=== PATIENT | male | born 1970 | race Caucasian/White ===

== ENCOUNTER → 2018-07-23 | Outpatient (CLI) | payer OTHER ==
[~2018-07-23] MED LIST: AMLO5 PO; CARB50 PO; CLON.5 PO; CYCL10 PO; HYDACE5 PO; LISI10 PO; LISI20 PO; LISI5 PO; METO50 PO; METO50ER PO; Mobic7.5 MG PO; PRED10 PO; Percocet 5-3251 EACH PO; RXCYCL10 PO; WARF2.5 PO
[2018-07-23 09:59] LABS: BASOPHILS ABSOLUTE AUTO 0.08 K/mm3 (0.00-0.23); BASOPHILS PERCENT AUTO 1 % (0-2); EOSINOPHILS ABSOLUTE AUTO 0.31 K/mm3 (0.00-0.68); EOSINOPHILS PERCENT AUTO 3 % (0-6); Hematocrit 39.4 % (37.0-53.0); Hemoglobin 13.4 g/dL (13.5-17.5); IMMATURE GRAN ABSOLUTE AUTO 0.08 K/mm3 (0.00-0.10); IMMATURE GRAN PERCENT AUTO 1 % (0-1); LYMPHOCYTES ABSOLUTE AUTO 1.95 K/mm3 (0.84-5.20); LYMPHOCYTES PERCENT AUTO 21 % (21-46); MONOCYTES ABSOLUTE AUTO 1.09 K/mm3 (0.16-1.47); MONOCYTES PERCENT AUTO 12 % (4-13); Mean Corpuscular HGB 35.7 pg (26.0-34.0); Mean Corpuscular Volume 105 fL (80-100); NEUTROPHILS ABSOLUTE AUTO 5.94 K/mm3 (1.96-9.15); NEUTROPHILS PERCENT AUTO 63 % (41-73); Platelet Count 633 K/mm3 (150-400); RDW Coefficient Variation 13.6 % (11.7-14.2); RDW Standard Deviation 52.3 fL (35.1-46.3); Red Blood Cell Count 3.75 M/mm3 (4.30-5.90); White Blood Cell Count 9.45 K/mm3 (4.00-11.30)
[2018-07-23 10:31] LABS: Alanine Aminotransfer (ALT/SGP 44 U/L (12-78); Albumin, Blood 2.7 g/dL (3.4-5.0); Albumin/Globulin Ratio 0.5 (0.8-1.8); Alk Phos 99 U/L (50-136); Anion Gap 6 mmol/L (6-16); Aspartate Aminotrans (AST/SGOT 36 U/L (12-37); Bilirubin, Total 0.4 mg/dL (0.1-1.0); Blood Urea Nitrogen 10 mg/dL (8-24); Bun/Creatinine Ratio 10.9 (12.0-20.0); CO2, Blood 28 mmol/L (21-32); Chloride, Blood 104 mmol/L (98-108); Creatinine, Blood 0.92 mg/dL (0.60-1.20); Globulin, Blood 5.1 g/dL (2.2-4.0); Glomerular Filtration Rate >60 (60-); Glucose, Blood 101 mg/dL (70-99); Potassium, Blood 4.2 mmol/L (3.5-5.5); Sodium, Blood 138 mmol/L (136-145); Total Protein, Blood 7.8 g/dL (6.4-8.2)
== END | disposition home or self-care (01) ==
LOC: LAB SHORT 09:52 → LAB EV 09:52
PROVIDERS: General Practice
DX: J18.9 Pneumonia, unspecified organism (principal)
CPT/HCPCS: 80053; 85025

== ENCOUNTER 2020-02-24 13:32 | Inpatient (IN) | payer OTHER ==
[~2020-02-24] VITALS: Ht 175.3 cm; Wt 72.7 kg
[2020-02-24 14:13] LABS: BASOPHILS ABSOLUTE AUTO 0.06 K/mm3 (0.00-0.23); BASOPHILS PERCENT AUTO 1 % (0-2); EOSINOPHILS ABSOLUTE AUTO 0.03 K/mm3 (0.00-0.68); EOSINOPHILS PERCENT AUTO 0 % (0-6); Hematocrit 49.8 % (37.0-53.0); Hemoglobin 17.9 g/dL (13.5-17.5); IMMATURE GRAN ABSOLUTE AUTO 0.03 K/mm3 (0.00-0.10); IMMATURE GRAN PERCENT AUTO 0 % (0-1); LYMPHOCYTES ABSOLUTE AUTO 1.26 K/mm3 (0.84-5.20); LYMPHOCYTES PERCENT AUTO 13 % (21-46); MONOCYTES ABSOLUTE AUTO 0.86 K/mm3 (0.16-1.47); MONOCYTES PERCENT AUTO 9 % (4-13); Mean Corpuscular HGB 36.3 pg (26.0-34.0); Mean Corpuscular HGB Conc 35.9 g/dL (31.5-36.5); Mean Corpuscular Volume 101 fL (80-100); NEUTROPHILS ABSOLUTE AUTO 7.19 K/mm3 (1.96-9.15); NEUTROPHILS PERCENT AUTO 76 % (41-73); Platelet Count 256 K/mm3 (150-400); RDW Coefficient Variation 11.4 % (11.7-14.2); Red Blood Cell Count 4.93 M/mm3 (4.30-5.90); White Blood Cell Count 9.43 K/mm3 (4.00-11.30)
[2020-02-24 14:35] LABS: Alanine Aminotransfer (ALT/SGP 135 U/L (12-78); Albumin, Blood 4.1 g/dL (3.4-5.0); Albumin/Globulin Ratio 1.1 (0.8-1.8); Alk Phos 109 U/L (50-136); Anion Gap 14 mmol/L (6-16); Aspartate Aminotrans (AST/SGOT 159 U/L (12-37); Bilirubin, Total 0.8 mg/dL (0.1-1.0); Blood Urea Nitrogen 6 mg/dL (8-24); Bun/Creatinine Ratio 9.7 (12.0-20.0); CO2, Blood 24 mmol/L (21-32); Calcium, Blood 8.5 mg/dL (8.5-10.1); Chloride, Blood 90 mmol/L (98-108); Creatinine, Blood 0.62 mg/dL (0.60-1.20); Globulin, Blood 3.7 g/dL (2.2-4.0); Glomerular Filtration Rate >60 (60-); Glucose, Blood 107 mg/dL (70-99); Potassium, Blood 3.3 mmol/L (3.5-5.5); Sodium, Blood 128 mmol/L (136-145); Total Protein, Blood 7.8 g/dL (6.4-8.2); Troponin I <0.015 ng/mL (0.000-0.040)
[2020-02-24] MEDS ORDERED: LISI5 (15:16)
[2020-02-24 18:04] LABS: PCO2 Arterial 41.4 mmHg (35-45); PO2 Arterial 103 mmHg (80-100); pH Blood Arterial 7.46 (7.35-7.45)
--- NOTE | 2020-02-24 19:00 | NUR ---
ASSUMPTION OF CARE RECIEVED REPORT FROM VIKASH URBINA, ASSUMED CARE OF PATIENT. PATIENT INTUBATED AND SEDATED. ETT 7.0 26CM AT THE LIP. VENT SETTINGS AC 14, 450, PEEP 5, FIO2 35%. VITALS STABLE, PROPOFOL INFUSING AT 65MCG/KG/MIN. POTASSIUM INFUSING ORDERED. FUENTES PATENT AND DRAINING CLEAR, NAZARIO URINE. NO S/S OF DISTRESS. WILL REVIEW ORDERS AND TREAT PRESCRIBED.
--- NOTE | 2020-02-24 19:55 | NUR ---
ASSUMED CARE/SUMMARY PT ARRIVED TO ICU AT 1635 VIA STRETCHER, AND WHEN WE TRANSFERRED HIM HE BECAME VERY AGITATED/ANXIOUS, HAVING DIFFICULTY WITH THE 7.0 ETT, IT WAS DIFFICULT GETTING MUCH SECRETIONS SUCTIONED OUT. VITALS WERE NORMAL, SPO2 IN THE 90s, MAP > 65. VENT WAS SET AT AC 14/450/5/35%. PROPFOL WAS TURNED UP, AND PEAKED AT 65 MCG/KG/MIN. 100 MCG OF FENT AND 2 MG OF ATIVAN GIVEN AROUND 1700, DUE TO THE PT's HIGH AGITATION, PULLING ON RESTRAINTS, REACHING FOR TUBE, ETC... PT WOULD SHAKE HIS HEAD NO AND YES, MOSTLY APPROPRIATELY TO QUESTIONS, SQUEEZE AND LET GO OF FINGERS, BUT DID NOT COMPLETELY FOLLOW DIRECTIONS, KEPT FIGHTING AGAINST RESTRAINTS AND STAFF. PT WAS CALM/SEDATED AFTER MEDS, DR TALBOT UPDATED, AND PLACED MORE ORDERS. PT STABLE. SWELLING SIGNIFICANT ON FACE AND LIPS OF THE RIGHT SIDE, THE TONGUE IS MILDLY TO MODERATELY SWOLLEN WELL. DR. TALBOT WANTS THE PT BE COMFORTABLE, AND NOT GET A SEDATION VACATION/SBT UNTIL DR. MOSELEY EVALUATES PT IN THE MORNING AND WILL THEN DETERMINE THE NEXT COURSE OF ACTION. LR INFUSING AT 100 ML/HR. OG TUBE WAS CLAMPED, KCL WAS GIVEN PER TUBE. K+RIDER IV INFUSING PB WELL. BED LOW AND LOCKED. PT IN SWB RESTRAINTS, SECURED TO BED.
--- NOTE | 2020-02-25 | NUR ---
REASSESSMENT NO ACUTE CHANGES FROM PREVIOUS ASSESSMENT. VENT SETTINGS FIO2 DECREASED TO 30%. VITALS REMAIN STABLE. WILL CONTINUE TO MONITOR.
[2020-02-25 03:57] LABS: Hematocrit 47.5 % (37.0-53.0); Hemoglobin 16.3 g/dL (13.5-17.5); Mean Corpuscular HGB 35.1 pg (26.0-34.0); Mean Corpuscular HGB Conc 34.3 g/dL (31.5-36.5); Mean Corpuscular Volume 102 fL (80-100); Mean Platelet Volume 9.9 fL (9.1-12.4); Platelet Count 156 K/mm3 (150-400); RDW Coefficient Variation 11.6 % (11.7-14.2); RDW Standard Deviation 44.3 fL (35.1-46.3); Red Blood Cell Count 4.65 M/mm3 (4.30-5.90); White Blood Cell Count 7.83 K/mm3 (4.00-11.30)
--- NOTE | 2020-02-25 04:00 | NUR ---
REASSESSMENT NO ACUTE CHANGES FROM PREVIOUS ASSESSMENT. FIO2 DECREASED TO 25% WITH SATS ABOVE 95%. FACIAL SWELLING STILL PRESENT BUT IMPROVING. PROPOFOL AT 65MCG/KG/MIN, LR AT 100ML/HR. OG TO LIS, AND FUENTES PATENT AND DRAINING CLEAR, YELLOW URINE.
[2020-02-25 04:13] LABS: Anion Gap 9 mmol/L (6-16); Blood Urea Nitrogen 13 mg/dL (8-24); Bun/Creatinine Ratio 17.1 (12.0-20.0); CO2, Blood 26 mmol/L (21-32); Calcium, Blood 7.4 mg/dL (8.5-10.1); Chloride, Blood 94 mmol/L (98-108); Creatinine, Blood 0.76 mg/dL (0.60-1.20); Glomerular Filtration Rate >60 (60-); Glucose, Blood 184 mg/dL (70-99); Magnesium, Blood 1.4 mg/dL (1.6-2.4); Phosphorus, Blood 3.6 mg/dL (2.5-4.9); Potassium, Blood 4.2 mmol/L (3.5-5.5); Sodium, Blood 129 mmol/L (136-145)
--- NOTE | 2020-02-25 05:43 | NUR ---
SHIFT SUMMARY PATIENT REMAINS INTUBATED AND SEDATED. VENT SETTINGS UNCHANGED, FIO2 UP TO 30%. SUCTIONING THICK, CLEAR DRAINAGE FROM NOSTRILS. THIN, WHITE SECRETIONS ARE SUCTIONED FREQUENTLY ORALLY. PROPOFOL CONTINUES AT 65MCG/KG/MIN AND LR AT 100CC/HR. OG REMAINS TO LIS, FUENTES IS PATENT AND DRAINING CLEAR, YELLOW URINE. VITALS ARE STABLE CHARTED. LABS REVIEWED, WILL CONTINUE TO MONITOR AND REPORT OFF TO ONCOMING RN.
--- NOTE | 2020-02-25 06:35 | NUR ---
PATIENT SPONTANEOUSLY AWOKE ON 65MCG/KG/MIN OF PROPOFOL. WIDE AWAKE, ATTEMPTING TO SIT UP AND CHEW ON TUBE. REDIRECTED AND ORIENTED PATIENT TO SITUATION. PATIENT FOLLOWS COMMANDS BUT BECAME MIDLY ANXIOUS, GAGGING ON TUBE AND CONTINUE TO LIFT HEAD OFF BED AND LOOK AROUND. ATIVAN GIVEN CHARTED AND PROPOFOL INCREASED FOR PATIENT'S COMFORT.
--- NOTE | 2020-02-25 09:34 | NUR ---
CARE ASSUMED CARE AND REPORT ASSUMED FROM ELIZABETH URBINA. PT INTUBATED AND SEDATED. VENT AC 14, TV 450, PEEP 5, FIO2 30%. PROPOFOL GTT INFUSING AT 70 MCG AT START OF SHIFT, NOW INFUSING AT 50 MCG. SEDATION VACATION COMPLETED; MD MOSELEY AT BEDSIDE; PT WAS CALM AND ABLE TO FOLLOW COMMANDS APPROPRIATELY. DENIED PAIN WHEN ASKED. CURRENTLY NSR, HR 90S AND BP WNL. LUNG SOUNDS COARSE THROUGHOUT, BUT DID CLEAR FOLLOWING ETT SUCTIONING. OGT SECURED TO LIWS; CLAMPED WHEN ADMINISTERING MEDICATIONS. FUENTES CATH SECURED AND PATENT. BUE RESTRAINED TO PROTECT ETT AND LINES. LIPS SWOLLEN WITH BOTTOM LIP LARGER THAN TOP LIP. RT CURRENTLY ADVANCING ETT TO 26 AT TEETH; WILL OBTAIN XRAY FOLLOWING ADVANCEMENT.
--- NOTE | 2020-02-25 11:47 | NUR ---
REASSESSMENT PT REMAINS INTUBATED. PT WAS ABLE TO FOLLOW COMMANDS APPROPRIATELY DURING SEDATION VACATION. ETT ADVANCED BY RT AND PER MD REQUEST. SHORTLY AFTER, PT HAD SUDDEN ONSET OF DESATURATION, WITH SPO2 DOWN TO 87%. RT NOTIFIED AND FIO2 INCREASED TO 50%. MD AWARE AND REPEAT CXR OBTAINED. OGT ADVANCED APPROX 4 INCHES PER MD REQUEST. MAGNESIUM REPLACED. ETT SECURED AT 27 AT TEETH. DIETARY CONSULTED FOR TUBE FEEDS. PROPOFOL GTT INFUSING AT 60 MCG. BUE RESTRAINED. WILL CONTINUE TO MONITOR.
--- NOTE | 2020-02-25 18:37 | NUR ---
TRIP TO CT/ SHIFT SUMMARY 1720 - PT HAD SUDDEN ONSET OF DECREASE IN SPO2, LOWEST BEING 82%. PT WAS SUCTIONED ORALLY AND THROUGH ETT FEW TIMES WITH 100% O2. REMAINED LOW SPO2. FIO2 ON VENT TITRATED UPWARDS, FROM 50% TO 70%. SEDATION ON STANDBY, PT REMAINED WITH LOW SPO2. MD MOSELEY AWARE. VERBAL ORDER TO INCREASE PEEP TO 10 AND FIO2 NEEDED. PT TAKEN ON TRIP TO CT SCAN TO RULE OUT PE. PT WAS ALERT ON PROPOFOL 50 MCG AND PULLING AGAINST RESTRAINTS. LUNG SOUNDS REMAINED CLEAR AND EQUAL IN ALL LOBES DURING HYPOXIC EPSIODE. PT NOW BACK IN ROOM, REMAINS ON VENT AC 14, TV 450, PEEP 10, FIO2 85%. REMAINS IN BUE RESTRAINTS. PROPOFOL GTT INFSUING AT 60 MCG; INCREASED PT IS PULLING AGAINST RESTRAINTS. TOLERATING TF AT 25 ML/HR. BP WNL. AFEBRILE. LR MIV INFUSING AT 100 ML/HR PER ORDER. FRIEND GGAAN AND SISTERS LEWIS AND ARIS UPDATED ON TELEPHONE. WILL GIVE BEDSIDE, HANDOFF REPORT TO NOC RN.
--- NOTE | 2020-02-25 19:00 | NUR ---
ASSUMPTION OF CARE RECEIVED REPORT FROM YUDI URBINA. ASSUMED CARE OF PATIENT. PATIENT VENTILATED, WITH SETTINGS AC 14, 450, PEEP 10 FIO2 85%. PROPOFOL AT 60MCG/KG/MIN, LR AT 100ML/HR. RESTRAINTS IN PLACE TO BILAT WRISTS, FUENTES PATENT AND DRAINING CLEAR, YELLOW URINE. VITALS STABLE CHARTED. WILL REVIEW ORDERS AND TREAT PRESCRIBED.
--- NOTE | 2020-02-25 22:01 | NUR ---
TUBE FEEDS INCREASED TUBE FEED TO 35ML/HR FROM 25 ML/HR. WILL MONITER PATIENT'S TOLERANCE AND RESIDUALS.
--- NOTE | 2020-02-26 | NUR ---
REASSESSMENT NO ACUTE CHANGES FROM PREVIOUS ASSESSMENT. VENT SETTINGS REMAINS AC 14, 450, PEEP 10, FIO2 55% WITH SATS ABOVE 95%. PROPOFOL AT 65MCG/KG/MIN, TF AT GOAL RATE OF 35ML/HR WITH RESIDUALS OF 30ML REFED. PATIENT CONTINUES TO SPONTANEOUSLY AWAKE, BUT IS REASSURED EASILY. WILL CONTINUE TO MONITOR.
[2020-02-26 03:29] LABS: BASOPHILS ABSOLUTE AUTO 0.02 K/mm3 (0.00-0.23); BASOPHILS PERCENT AUTO 0 % (0-2); EOSINOPHILS ABSOLUTE AUTO 0.01 K/mm3 (0.00-0.68); EOSINOPHILS PERCENT AUTO 0 % (0-6); Hematocrit 41.6 % (37.0-53.0); Hemoglobin 14.1 g/dL (13.5-17.5); IMMATURE GRAN ABSOLUTE AUTO 0.11 K/mm3 (0.00-0.10); IMMATURE GRAN PERCENT AUTO 1 % (0-1); LYMPHOCYTES ABSOLUTE AUTO 0.47 K/mm3 (0.84-5.20); LYMPHOCYTES PERCENT AUTO 3 % (21-46); MONOCYTES ABSOLUTE AUTO 0.64 K/mm3 (0.16-1.47); MONOCYTES PERCENT AUTO 4 % (4-13); Mean Corpuscular HGB 35.4 pg (26.0-34.0); Mean Corpuscular HGB Conc 33.9 g/dL (31.5-36.5); Mean Corpuscular Volume 105 fL (80-100); Mean Platelet Volume 10.2 fL (9.1-12.4); NEUTROPHILS ABSOLUTE AUTO 13.44 K/mm3 (1.96-9.15); NEUTROPHILS PERCENT AUTO 92 % (41-73); Platelet Count 142 K/mm3 (150-400); RDW Coefficient Variation 11.9 % (11.7-14.2); RDW Standard Deviation 46.7 fL (35.1-46.3); Red Blood Cell Count 3.98 M/mm3 (4.30-5.90); White Blood Cell Count 14.69 K/mm3 (4.00-11.30)
[2020-02-26 03:45] LABS: Anion Gap 6 mmol/L (6-16); Blood Urea Nitrogen 16 mg/dL (8-24); Bun/Creatinine Ratio 23.2 (12.0-20.0); CO2, Blood 29 mmol/L (21-32); Calcium, Blood 8.2 mg/dL (8.5-10.1); Chloride, Blood 101 mmol/L (98-108); Creatinine, Blood 0.69 mg/dL (0.60-1.20); Glomerular Filtration Rate >60 (60-); Glucose, Blood 170 mg/dL (70-99); Magnesium, Blood 2.4 mg/dL (1.6-2.4); Phosphorus, Blood 3.2 mg/dL (2.5-4.9); Potassium, Blood 3.8 mmol/L (3.5-5.5); Sodium, Blood 136 mmol/L (136-145)
--- NOTE | 2020-02-26 04:00 | NUR ---
REASSESSMENT NO ACUTE CHANGES FROM PREVIOUS ASSESSMENT. NO VISIBLE FACIAL SWELLING NOTED. PATIENT COMFORTABLE, TOLERATING VENTILATOR. VENT SETTINGS AC 14, 450, FIO2 30%, PEEP 10. SATS ABOVE 95%. PROPOFOL AT 65MCG/KG/MIN, LR AT 100, TF AT GOAL RATE OF 35ML/HR WITH RESIDUALS OF 70ML REFED. FUENTES REMAINS PATENT AND DRAINING CLEAR, YELLOW URINE. LABS REVEIWED. VITALS STABLE CHARTED. WILL CONTINUE TO MONITOR.
--- NOTE | 2020-02-26 06:10 | NUR ---
SHIFT SUMMARY PATIENT REMAINS INTUBATED AND SEDATED. VENT SETTINGS AC 14, 450, PEEP 10, FIO2 25%. SATS ABOVE 95%. VITALS STABLE. TUBE FEED REMAINS AT GOAL OF 35ML/HR, FLUSH IS 30ML/4 HOURS. PROPOFOL AT 65MCG/KG/MIN WITH SAS OF 3, LR AT 100ML/HR. FUENTES IS PATENT AND DRAINING CLEAR, YELLOW URINE. NO ACUTE EVENTS THROUGH SHIFT. WILL CONTINUE TO MONITOR AND REPORT TO ONCOMING RN.
--- NOTE | 2020-02-26 07:11 | NUR ---
RESPIRATORY CHANGES PATIENT WITH RAPID DROP IN 02 SATS TO 82%, FIO2 INCREASED TO 100%. PATIENT OPENING EYES AND ATTEMPTING TO SIT UP. PATIENT WAS EASILY REASSURED AND CALMED QUICKLY. SUCTIONED THIN SECRETIONS ORALLY WITH NO CHANGES TO O2 SATURATIONS. PATIENT SLOW TO RECOVER SATS WITH 100% FIO2. RT TO ROOM, ASSESSED ETT PLACEMENT, LEAK, AND SUCTIONED ETT WITH THICKER, WHITE SECRETIONS NOTED. FIO2 WAS PLACED AT 50% WITH SATS BETWEEN 90-92%. BEDSIDE REPORT WAS GIVEN TO WILSON URBINA.
--- NOTE | 2020-02-26 08:05 | NUR ---
INITIAL ASSESSMENT PATIENT INTUBATED AND ON SEDATION. PATIENT RESPONDS TO VERBAL STIMULI. PATIENT ABLE TO FOLLOW SOME SIMPLE COMMANDS. PATIENT ANXIOUS AT TIMES UPON WAKENING. PATIENT WEAK BUT ABLE TO MOVE EXTREMITIES. PATIENT AFEBRILE. PATIENT SHAKES HEAD "NO" WHEN ASKED BY NURSE IF HE IS IN PAIN. PATIENT SATTING 90% AND GREATER ON AC 14, TV 450, PEEP 10, AND 50% FIO2. LUNGS CLEAR TO AUSCULTATION. MODERATE AMOUNT OF FROTHY, CLEAR SPUTUM SUCTIONED FROM ETT. POSITIVE CUFF LEAK NOTED BY RT THIS AM. PATIENT IN SR, HR 70S TO 80S. SBP 1-TEENS TO 120S. ABDOMEN MILDLY DISTENDED, SOFT, NORMOACTIVE BS NOTED. UMBILICAL HERNIA NOTED. OG IN PLACE. VHP TF INFUSING AT GOAL RATE OF 35 MLS/ HOUR WITH 30 ML WATER FLUSH Q4H. OG SLOW AND DIFFICULT TO OBTAIN RESIDUALS AND TO FLUSH. RESIDUAL OF ZERO THIS AM. TEMP PROBE FUENTES IN PLACE DRAINING DARK YELLOW COLORED URINE. PATIENT FLUSHED. VERY SMALL LACERATION NOTED AT R EYEBROW FROM REPORTED FALL AT HOME. R SIDE OF FACE AND LIPS SLIGHTLY SWOLLEN; REPORTED TO HAVE GREAT IMPROVEMENT FROM JUST YESTERDAY. PROPOFOL INFUSING AT 60 MCG/ KG/ MINUTE AND LR AT 100 MLS/ HOUR. BED LOW, CALL LIGHT IN REACH. WILL CONTINUE TO MONITOR PATIENT FREQUENTLY THROUGHOUT SHIFT.
--- NOTE | 2020-02-26 08:18 | NUR ---
Echocardiogram completed.
--- NOTE | 2020-02-26 10:30 | NUR ---
PATIENT EXTUBATED AT 0958. PATIENT SATTING 90% AND GREATER ON 4 TO 5 L NC AT THIS TIME. PATIENT ORIENTED TO SELF AND FOLLOWING COMMANDS. PATIENT APPEARS CONFUSED OTHERWISE. SPEECH VERY SLURRED AND DIFFICULT TO UNDERSTAND. BED ALARM ON.
--- NOTE | 2020-02-26 12:01 | NUR ---
PATIENT HAS BEEN VERY ANXIOUS, REMOVING SPO2 PROBE, TRYING TO DEGOWN, TRYING TO CRAWL OUT OF BED, HAVING HALLUCINATIONS THAT PEOPLE ARE IN HIS ROOM. CIWA SCORE OF 16. PATIENT HAS BEEN GIVEN 4 MG PRN IV ATIVAN. PATIENT UNABLE TO COMPLETE BEDSIDE SWALLOW EVAL AT THIS TIME HE IS NOT CURRENTLY FOLLOWING DIRECTION TO COUGH AND DEEP BREATH. PATIENT ORIENTED ONLY TO SELF AT THIS TIME. SPEECH SLURRED AND VERY DIFFICULT TO UNDERSTAND. PATIENT HAS TEMP OF 99.4 DEGREES FAHRENHEIT. PATIENT SATTING 90% AND GREATER ON 5 L NC. HR IN THE 90S. SBP 1-TEENS TO 140S. OG REMOVED WHEN PATIENT EXTUBATED. BED LOW, CALL LIGHT IN REACH, BED ALARM ON. WILL CONTINUE TO MONITOR PATIENT FREQUENTLY THROUGHOUT SHIFT.
--- NOTE | 2020-02-26 16:00 | NUR ---
CIWA SCORE OF 8. PATIENT SATTING 90% AND GREATER ON OXYMIZER AT 8 L. PATIENT IN SR TO ST, HR 90S TO LOW 100S. SBP 180S TO 190S. TEMP OF 99.2 DEGREES FAHRENHEIT. NO OTHER ACUTE CHANGES TO NOTE ON AT THIS TIME.
--- NOTE | 2020-02-26 19:00 | NUR ---
ASSUMED CARE ASSUMED CARE OF PATIENT. AWAKE. AGITATED AND RESTLESS. ORIENTED TO SELF ONLY AT THIS TIME. FOLLOWS SIMPLE COMMANDS/DIRECTIONS. MOVES ALL EXTREMITIES AND REPOSTIONS SELF IN BED. BILATERAL SOFT WRIST RESTRAINTS IN PLACE TO PROTECT TUBES/LINES- PT DOES PULL ON FUENTES CATHETER AND IVs. PRECEDEX INFUSING @ 0.7MCG/KG/HR. CIWA SCORE IS 14. DENIES C/O PAIN OR DISCOMFORT. NPO AT THIS TIME. FUENTES PATENT- DRAINING YELLOW URINE. LR INFUSING @ 100CC/HR PER ORDER. SEE SHIFT ASSESSMENT FOR FULL ASSESSMENT.
--- NOTE | 2020-02-26 19:03 | NUR ---
SHIFT SUMMARY PATIENT INTUBATED AND ON SEDATION AT BEGINNING OF SHIFT. PATIENT EXTUBATED THIS SHIFT. PATIENT HAS BEEN IN ALCOHOL WITHDRAWALS SINCE BEING EXTUBATED. PATIENT STARTED ON PRECEDEX, SCHEDULED IV ATIVAN AND PRN IV ATIVAN. PATIENT HAS BEEN HALLUCINATING AND BEEN VERY AGITATED OFF AND ON. PATIENT HAD TMAX OF 99.4 DEGREES FAHRENHEIT. PATIENT PLACED ON 4 L NC ONCE EXTUBATED BUT INCREASED TO 8 L OXYMIZER SHORT TIME AFTER. PATIENT REMAINED IN SR TO ST, HR 70S TO LOW 100S. SBP 1-TEENS TO 190S. PATIENT REMAINED NPO. NURSE DID TRY BEDSIDE SWALLOW EVAL WITH PATIENT BUT PATIENT FAILED. PATIENT HAD 1 MEDIUM, LIQUID, BROWN BM THIS SHIFT. TEMP PROBE FUENTES DRAINED 3 L OF URINE. NO CHANGE TO SKIN. LR REMAINS INFUSING AT 100 MLS/ HOUR. PRECEDEX INFUSING AT 0.7 MCG/ KG/ HOUR. SPUTUM CULTURE SENT TO LAB FOR INCREASING WBCS. LEVAQUIN STARTED. REPORT HAS BEEN GIVEN TO ASSUMING RUBBERIZING MECHANIC NURSE.
--- NOTE | 2020-02-26 21:00 | NUR ---
HYPERTENSION/AGITATION CALL TO DR. MOSELEY TO DISCUSS HYPERTENSION (SBP 160-180s) AND INCREASED AGITATION. PLAN IS TO CONTINUE WITH PRECEDEX AND ATIVAN ORDERED. NO NEW ORDERS FOR BP OTHER THAN TO USE ATIVAN FOR AGITATION.
[2020-02-27 03:28] LABS: EOSINOPHILS PERCENT AUTO 0 % (0-6); Red Blood Cell Count 4.31 M/mm3 (4.30-5.90)
[2020-02-27 03:39] LABS: BASOPHILS ABSOLUTE AUTO 0.01 K/mm3 (0.00-0.23); BASOPHILS PERCENT AUTO 0 % (0-2); EOSINOPHILS ABSOLUTE AUTO 0.03 K/mm3 (0.00-0.68); Hematocrit 44.8 % (37.0-53.0); Hemoglobin 15.4 g/dL (13.5-17.5); IMMATURE GRAN ABSOLUTE AUTO 0.08 K/mm3 (0.00-0.10); IMMATURE GRAN PERCENT AUTO 1 % (0-1); LYMPHOCYTES ABSOLUTE AUTO 1.13 K/mm3 (0.84-5.20); LYMPHOCYTES PERCENT AUTO 9 % (21-46); MONOCYTES ABSOLUTE AUTO 0.76 K/mm3 (0.16-1.47); MONOCYTES PERCENT AUTO 6 % (4-13); Mean Corpuscular HGB 35.7 pg (26.0-34.0); Mean Corpuscular HGB Conc 34.4 g/dL (31.5-36.5); Mean Corpuscular Volume 104 fL (80-100); NEUTROPHILS ABSOLUTE AUTO 10.32 K/mm3 (1.96-9.15); NEUTROPHILS PERCENT AUTO 84 % (41-73); RDW Coefficient Variation 11.8 % (11.7-14.2); RDW Standard Deviation 45.6 fL (35.1-46.3); White Blood Cell Count 12.33 K/mm3 (4.00-11.30)
[2020-02-27 03:40] LABS: Mean Platelet Volume 10.5 fL (9.1-12.4); Platelet Count 125 K/mm3 (150-400)
[2020-02-27 03:44] LABS: Alanine Aminotransfer (ALT/SGP 95 U/L (12-78); Albumin, Blood 3.6 g/dL (3.4-5.0); Albumin/Globulin Ratio 1.1 (0.8-1.8); Alk Phos 81 U/L (50-136); Anion Gap 6 mmol/L (6-16); Aspartate Aminotrans (AST/SGOT 94 U/L (12-37); Bilirubin, Total 1.2 mg/dL (0.1-1.0); Blood Urea Nitrogen 11 mg/dL (8-24); Bun/Creatinine Ratio 17.8 (12.0-20.0); CO2, Blood 30 mmol/L (21-32); Calcium, Blood 8.3 mg/dL (8.5-10.1); Chloride, Blood 102 mmol/L (98-108); Creatinine, Blood 0.62 mg/dL (0.60-1.20); Globulin, Blood 3.4 g/dL (2.2-4.0); Glomerular Filtration Rate >60 (60-); Glucose, Blood 88 mg/dL (70-99); Phosphorus, Blood 1.6 mg/dL (2.5-4.9); Potassium, Blood 2.8 mmol/L (3.5-5.5); Sodium, Blood 138 mmol/L (136-145)
--- NOTE | 2020-02-27 06:36 | NUR ---
SHIFT SUMMARY NO ACUTE CHANGES. CIWA SCORE 14-21 DURING SHIFT. PRECEDEX INFUSED BETWEEN 0.5-0.7MCG/KG/HR- NOW INFUSING AT 0.5MCG/KG/HR. PT CONTINUES TO BE ORIENTED TO SELF ONLY. BILATERAL SOFT WRIST RESTRAINTS REMAIN IN PLACE. MEDICATED WITH SCHEDULED ATIVAN WELL PRN ATIVAN T/O SHIFT. NPO. FUENTES PATENT AND DRAINING YELLOW URINE. ABNORMAL LABS CALLED TO DR. MOSELEY AND ELECTROLYTE REPLACEMENT ORDERED. LR INFUSING AT 100CC/HR. CONTINUES TO BE HYPERTENSIVE WITH SBP 160-180s. HR 60-80s. WILL REPORT TO ONCOMING RN WHEN AVAILABLE.
--- NOTE | 2020-02-27 08:11 | NUR ---
CARE ASSUMED CARE AND REPORT ASSUMED FROM BRYAN URBINA. PT SLEEPING BUT EASILY AROUSES. CURRENTLY ON PRECEDEX AT 0.5 MCG. WHEN AWAKENED, PT DOES KNOW WHERE HE IS, THE YEAR, AND HIMSELF. CANNOT RECALL WHY HE IS HERE. DENIES NAUSEA. CIWA 9. BUE RESTRAINED, HE PULLED OUT PERIPHERAL IV ON NOC SHIFT. POTASSIUM PHOSPHATE REPLACEMENT INFUSING. LR INFUSING AT 100 ML/HR PER ORDER. LUNG SOUNDS CLEAR TO DIMISHED. SPO2 96% ON 5L OXYMIZER. NO FACIAL SWELLLING NOTED. WILL CONTINUE TO MONITOR.
--- NOTE | 2020-02-27 11:44 | NUR ---
REASSESSMENT PRECEDEX GTT HAS BEEN OFF SINCE 1029. CIWA 9. ATIVAN 2 MG IVP GIVEN. ATTEMPTED SWALLOW EVAL; PT FAILED DUE TO COUGHING IMMEDIATELY AFTER TAKING FEW SIPS. RESTRAINTS REMOVED AT 1000 AND PT ALERT AND FOLLOWING COMMANDS APPROPRIATELY. DENIES PAIN. RECIVED BEDBATH AND LINEN CHANGE. SPO2 93% ON 4L NC. WILL CONTINUE TO MONITOR.
--- NOTE | 2020-02-27 13:38 | NUR ---
BEDSIDE SWALLOW EVAL PT ASKING FOR FOOD AND WATER; STATES HE IS HUNGRY. PASSED BEDSIDE SWALLOW EVAL THIS AFTERNOON. SWALLOW EVAL ORDERED FOR SPEECH THERAPY TO COMPLETE. PT SITTING UPRIGHT EATING A SNACK AND SIPPING ON APPLE JUICE.
[2020-02-27 15:02] LABS: Phosphorus, Blood 3.6 mg/dL (2.5-4.9); Potassium, Blood 3.2 mmol/L (3.5-5.5)
--- NOTE | 2020-02-27 16:13 | NUR ---
REASSESSMENT PT REMAINS CALM AND COOPERATIVE. EASILY FALLS ASLEEP AND IS WEAK IN UPPER EXTREMITIES. TOLERATING PO LIQUIDS AND SOFT FRUIT CUPS. TYELNOL GIVEN FOR TEMP 100.8. POTASSIUM RECHECK 3.2; REPLACEMENT INFUSING. PRECEDEX GTT REMAINS OFF SINCE 1029. PT HAS SPOKEN TO TWO FAMILY MEMBERS ON TELEPHONE TODAY AND HAD 1 VISITOR WHO HE INTERACTED WITH. LUNG SOUNDS REMAIN CLEAR. AWAITING TRANSFER TO PCU. WILL CONTINUE TO MONITOR.
--- NOTE | 2020-02-27 18:13 | NUR ---
SHIFT SUMMARY PT REMAINED IN BED ENTIRE SHIFT. PRECEDEX GTT DISCONTINUED AT 1030 TODAY. HAS BEEN RECIEVING ATIVAN 2 MG IVP Q6H. LUNG SOUNDS CLEAR THROUGHOUT ALL ADAN. TITRATED O2 DEMANDS FROM OXYMIZER 5L TO 2L NC AND NOW IS ON RA. PASSED AFTERNOON BEDSIDE, SWALLOW EVAL AND HAS BEEN TOLERATING LIQUIDS WITH NO SIGNS OF CHOKING. NO SWELLING NOTED TO FACE. CIWA 4-9 TODAY. PT ALERT AND ORIENTED TODAY. POTASSIUM REPLACED THIS AFTERNOON. MIV LR CONTINUES TO INFUSE AT 100 ML/HR. HAS REMAINED IN NSR ENTIRE SHIFT. PCU STATUS. WILL GIVE BEDSIDE, HANDOFF REPORT TO EDVIN URBINA.
--- NOTE | 2020-02-27 22:07 | NUR ---
Care Assumed 1900 Pt A/O X 4, able to state year, location, event, but states incorrect date/month. Appears drowsy at times. States he would like to nap. On RA, NSR, BP 168/91, HR 80's. Denies nausea and pain, CIWA 8. LR infusing at 100 ml/hr via powerglide. Slight swelling of lip and right face noted. Call light within reach, pt able to use it successfully.
[2020-02-28 04:23] LABS: Magnesium, Blood 1.8 mg/dL (1.6-2.4); Phosphorus, Blood 3.1 mg/dL (2.5-4.9)
--- NOTE | 2020-02-28 06:52 | NUR ---
Shift Summary Pt resting in bed, on RA. VSS. NSR. Pt A/O to date/year/location. During 399 assessment pt dropped reading glasses on floor and states, "the machine in the corner is trying to grab my glasses." Asked pt if there is anything else he is currently seeing. Pt states "just the machine trying to grab my glasses." CIWA score of 9. Treated per emar. Reorieneted to the "machine" being a chair. Pt sleeping/resting after that. LR infusing via TOPHER powerglide. Cole in place with clear/yellow urine. Will report to oncoming shift.
--- NOTE | 2020-02-28 07:30 | NUR ---
ASSUMED CARE RECEIVED REPORT FROM CIARA HIGHTOWER. PT IS SLEEPING IN BED, STABLE VITALS, LR INFUSING AT 100 ML/HR, ON ROOM AIR. PATENT FEUNTES DRAINING NAZARIO URINE. BED LOW AND LOCKED. CALL LIGHT WITHIN REACH
[2020-02-28 07:47] LABS: BASOPHILS ABSOLUTE AUTO 0.03 K/mm3 (0.00-0.23); BASOPHILS PERCENT AUTO 0 % (0-2); EOSINOPHILS PERCENT AUTO 2 % (0-6); Hematocrit 41.4 % (37.0-53.0); Hemoglobin 14.3 g/dL (13.5-17.5); IMMATURE GRAN ABSOLUTE AUTO 0.05 K/mm3 (0.00-0.10); IMMATURE GRAN PERCENT AUTO 1 % (0-1); LYMPHOCYTES ABSOLUTE AUTO 1.33 K/mm3 (0.84-5.20); LYMPHOCYTES PERCENT AUTO 13 % (21-46); MONOCYTES ABSOLUTE AUTO 1.11 K/mm3 (0.16-1.47); MONOCYTES PERCENT AUTO 10 % (4-13); Mean Corpuscular HGB 36.1 pg (26.0-34.0); Mean Corpuscular HGB Conc 34.5 g/dL (31.5-36.5); Mean Corpuscular Volume 105 fL (80-100); Mean Platelet Volume 10.5 fL (9.1-12.4); NEUTROPHILS ABSOLUTE AUTO 7.93 K/mm3 (1.96-9.15); NEUTROPHILS PERCENT AUTO 74 % (41-73); Platelet Count 132 K/mm3 (150-400); RDW Coefficient Variation 11.9 % (11.7-14.2); RDW Standard Deviation 46.5 fL (35.1-46.3); Red Blood Cell Count 3.96 M/mm3 (4.30-5.90); White Blood Cell Count 10.65 K/mm3 (4.00-11.30)
[2020-02-28 07:57] LABS: Alanine Aminotransfer (ALT/SGP 82 U/L (12-78); Albumin, Blood 3.2 g/dL (3.4-5.0); Albumin/Globulin Ratio 0.9 (0.8-1.8); Alk Phos 82 U/L (50-136); Anion Gap 8 mmol/L (6-16); Aspartate Aminotrans (AST/SGOT 62 U/L (12-37); Bilirubin, Total 0.9 mg/dL (0.1-1.0); Blood Urea Nitrogen 10 mg/dL (8-24); Bun/Creatinine Ratio 13.3 (12.0-20.0); CO2, Blood 28 mmol/L (21-32); Calcium, Blood 8.8 mg/dL (8.5-10.1); Chloride, Blood 102 mmol/L (98-108); Creatinine, Blood 0.75 mg/dL (0.60-1.20); Globulin, Blood 3.5 g/dL (2.2-4.0); Glomerular Filtration Rate >60 (60-); Glucose, Blood 81 mg/dL (70-99); Potassium, Blood 3.1 mmol/L (3.5-5.5); Sodium, Blood 138 mmol/L (136-145); Total Protein, Blood 6.7 g/dL (6.4-8.2)
--- NOTE | 2020-02-28 17:54 | NUR ---
PT TRANSFERRED FROM ICU THIS SHIFT. CIWA SCORES HAVE BEEN 0. PT IS ABLE TO AMBULATE AROUND HIS ROOM. HE IS ALERT AND ORIENTED AND ABLE TO EXPRESS ANY NEEDS. PT REMAINS NPO DUE TO ASPIRATION PRECAUTIONS. CALL LIGHT WITHIN REACH, WILL CONTINUE TO MONTIOR.
--- NOTE | 2020-02-29 04:15 | NUR ---
SHIFT SUMMARY ADMITTED FOR ACUTE RESP FAILURE. FULL CODE. FOUND TO BE ALLERGIC TO LISINOPRIL - RESOLVED. LR INFUSING @ 100 ML/HR. CIWA SCORES ARE ZERO. PT IS INDEPENDENT IN ROOM. HE IS A&O X4. FUENTES IS IN PLACE. HE IS NPO DUE TO ASPIRATION CONCERNS. HE WAS HOPEFUL TO DC TODAY
[2020-02-29 05:42] LABS: Anion Gap 10 mmol/L (6-16); Blood Urea Nitrogen 16 mg/dL (8-24); Bun/Creatinine Ratio 20.8 (12.0-20.0); CO2, Blood 26 mmol/L (21-32); Calcium, Blood 8.9 mg/dL (8.5-10.1); Chloride, Blood 102 mmol/L (98-108); Creatinine, Blood 0.77 mg/dL (0.60-1.20); Glomerular Filtration Rate >60 (60-); Glucose, Blood 72 mg/dL (70-99); Potassium, Blood 3.2 mmol/L (3.5-5.5); Sodium, Blood 138 mmol/L (136-145)
--- NOTE | 2020-02-29 11:23 | NUR ---
PT STATES FEELS READY TO GO HOME. IS SET TO QUIT DRINKING AND SMOKING. DISCUSSED WITH DR. HOOPER TO SEE WHAT MEDS MAY BE AVAILABLE
[2020-02-29] MEDS ORDERED: NIFE30ER PO (12:38)
[2020-02-29] MEDS ORDERED: GABA300 PO (12:39)
--- NOTE | 2020-02-29 13:05 | NUR ---
DISCHARGE REVIEWED WITH PT . HE COMFORTABLE TO GO HOME. PEND RIDE BEFORE PULL IV. PT WALKING ABOUT ROOM AND HALLS.
--- NOTE | 2020-02-29 13:56 | NUR ---
IV PULLED INTACT. NO TELE. PT WALKED OUT DOOR AT 1320 WITH ASST FOF AIDE.
== END 2020-02-29 13:19 | disposition home or self-care (01) | DRG 915 ==
LOC: ER 13:32 → ICUW 15:27 → MEDS 02-28 10:17 → ENPENDDIS 02-29 12:26 → MEDS 02-29 13:19
PROVIDERS: Emergency Medicine; Internal Medicine Critical Care Medicine; Internal Medicine Pulmonary Disease; Student in an Organized Health Care Education/Training Program; ADMIT Internal Medicine
PROC: 0BH17EZ Insertion of Endotracheal Airway into Trachea, Via Natural or Artificial Opening (ICD-10-PCS; principal; 2020-02-24)
PROC: 5A1945Z Respiratory Ventilation, 24-96 Consecutive Hours (ICD-10-PCS; 2020-02-24)
DX: T78.3XXA Angioneurotic edema, initial encounter (principal); J96.01 Acute respiratory failure with hypoxia; J18.9 Pneumonia, unspecified organism; E87.1 Hypo-osmolality and hyponatremia; F10.231 Alcohol dependence with withdrawal delirium; E83.42 Hypomagnesemia; E83.39 Other disorders of phosphorus metabolism; I10 Essential (primary) hypertension
CPT/HCPCS: 31500; 31720; 36415; 36600; 51702; 71045; 71046; 71260; 80048; 80053; 82803; 82947; 83690; 83735; 83880; 84100; 84132; 84484; 85025; 85027; 87070; 87205; 92526; 92610; 93306; 94002; 94003; 96361-59; 96374-59; 96375-59; 97165; 99285-25; A9270; C1751; J0171; J0330; J0597; J1200; J1650; J1956; J2060; J2250; J2704; J2930; J3010; J3411; J3475; J3480; J7030; J7050; J7060; J7120; Q9967

== ENCOUNTER 2021-01-13 02:36 | Inpatient (IN) | payer OTHER ==
[~2021-01-13] VITALS: Ht 177.8 cm; Wt 76.1 kg
[~2021-01-13 02:36] MED LIST changes: +GABA300 PO; +LISI5; +NIFE30ER PO
[2021-01-13 03:46] LABS: BASOPHILS ABSOLUTE AUTO 0.08 K/mm3 (0.00-0.23); BASOPHILS PERCENT AUTO 1 % (0-2); EOSINOPHILS PERCENT AUTO 2 % (0-6); Hematocrit 48.2 % (37.0-53.0); Hemoglobin 16.6 g/dL (13.5-17.5); IMMATURE GRAN ABSOLUTE AUTO 0.03 K/mm3 (0.00-0.10); IMMATURE GRAN PERCENT AUTO 0 % (0-1); LYMPHOCYTES ABSOLUTE AUTO 2.11 K/mm3 (0.84-5.20); LYMPHOCYTES PERCENT AUTO 23 % (21-46); MONOCYTES ABSOLUTE AUTO 1.49 K/mm3 (0.16-1.47); MONOCYTES PERCENT AUTO 16 % (4-13); Mean Corpuscular HGB 35.5 pg (26.0-34.0); Mean Corpuscular HGB Conc 34.4 g/dL (31.5-36.5); Mean Corpuscular Volume 103 fL (80-100); Mean Platelet Volume 9.7 fL (9.1-12.4); NEUTROPHILS ABSOLUTE AUTO 5.48 K/mm3 (1.96-9.15); NEUTROPHILS PERCENT AUTO 58 % (41-73); Platelet Count 200 K/mm3 (150-400); RDW Coefficient Variation 12.4 % (11.7-14.2); RDW Standard Deviation 47.1 fL (35.1-46.3); Red Blood Cell Count 4.68 M/mm3 (4.30-5.90); White Blood Cell Count 9.39 K/mm3 (4.00-11.30)
[2021-01-13 04:38] LABS: Anion Gap 13 mmol/L (6-16); Blood Urea Nitrogen 6 mg/dL (8-24); Bun/Creatinine Ratio 8.5 (12.0-20.0); CO2, Blood 22 mmol/L (21-32); Calcium, Blood 9.3 mg/dL (8.5-10.1); Chloride, Blood 98 mmol/L (98-108); Glomerular Filtration Rate >60 (60-); Glucose, Blood 102 mg/dL (70-99); Potassium, Blood 4.2 mmol/L (3.5-5.5); Sodium, Blood 133 mmol/L (136-145); Troponin I <0.015 ng/mL (0.000-0.040)
--- NOTE | 2021-01-13 16:33 | NUR ---
PT IS A&OX4, PLEASANT WITH CARES. CIWA 8 AND NEEDED LIBRIUM AND ATIVAN GIVEN PRN. IN AM PT WAS REPORTING THAT HE WAS STILL HAVING DIFFIUCUTLY SWALLOWING, PRN BENADRYL AND TYLENOL GIVEN WELL SCHEDULED IV SOLUMEDROL. PT DIDN'T REPORT MUCH UNTIL ABOUT 1530. MEDS WERE SWITCHED TO NEURONTIN 1400 DOSE GIVEN. PT REPORTS IN EVENING HE DOSE NOT FEEL THE LUMP ANYMORE AND SAYS HE IS NOT HAVING A HARD TIME SWALLOWING ANYMORE. VSS ON RA.
[2021-01-14 04:40] LABS: BASOPHILS ABSOLUTE AUTO 0.02 K/mm3 (0.00-0.23); BASOPHILS PERCENT AUTO 0 % (0-2); EOSINOPHILS PERCENT AUTO 0 % (0-6); Hematocrit 44.8 % (37.0-53.0); Hemoglobin 15.5 g/dL (13.5-17.5); IMMATURE GRAN ABSOLUTE AUTO 0.07 K/mm3 (0.00-0.10); IMMATURE GRAN PERCENT AUTO 1 % (0-1); LYMPHOCYTES ABSOLUTE AUTO 0.81 K/mm3 (0.84-5.20); LYMPHOCYTES PERCENT AUTO 5 % (21-46); MONOCYTES ABSOLUTE AUTO 1.73 K/mm3 (0.16-1.47); MONOCYTES PERCENT AUTO 12 % (4-13); Mean Corpuscular HGB Conc 34.6 g/dL (31.5-36.5); Mean Corpuscular Volume 104 fL (80-100); Mean Platelet Volume 10.4 fL (9.1-12.4); NEUTROPHILS ABSOLUTE AUTO 12.46 K/mm3 (1.96-9.15); NEUTROPHILS PERCENT AUTO 83 % (41-73); Platelet Count 201 K/mm3 (150-400); RDW Coefficient Variation 12.4 % (11.7-14.2); White Blood Cell Count 15.09 K/mm3 (4.00-11.30)
[2021-01-14 05:27] LABS: Anion Gap 14 mmol/L (6-16); Blood Urea Nitrogen 19 mg/dL (8-24); Bun/Creatinine Ratio 23.7 (12.0-20.0); CO2, Blood 21 mmol/L (21-32); Calcium, Blood 9.8 mg/dL (8.5-10.1); Chloride, Blood 100 mmol/L (98-108); Glomerular Filtration Rate >60 (60-); Glucose, Blood 101 mg/dL (70-99); Potassium, Blood 4.3 mmol/L (3.5-5.5); Sodium, Blood 135 mmol/L (136-145)
--- NOTE | 2021-01-14 15:45 | NUR ---
ASSUME CARE: I have received report from LOAD DISPATCHER and assumed care of pt. He is currently resting on the bed in locking restraints. Pt is able to tell me his name, but does not answer any other questions. He points at visual hallucinations in front of him and talks to the hallucinations. Precedex started. Pt placed on 2L NC for decreased SpO2 to mid 80's while sleeping.
--- NOTE | 2021-01-14 18:14 | NUR ---
END OF SHIFT SUMMARY: Pt transferred to ICU just before 1600. He was started on precedex and locking restraints were changed to soft restraints. Pt has been resting since. He is oriented to self and speech is very difficult to understand. Precedex currently at 0.3 mcg/kg/min. Will continue to monitor until shift change.
--- NOTE | 2021-01-14 19:40 | NUR ---
ASSESSMENT/ASSUMED CARE PT RESTING QUIETLY. AWAKENS TO VERBAL STIMULI. SPEECH SLURRED. ORIENTED TO SELF ONLY. STATES,"I'M IN [place] AND IT'S 1977". REORIENTED. PT WITH TREMORS WHEN AWAKE. BACK TO SLEEP QUIETLY WHEN NONDISTURBED. LUNGS CLEAR ON 2 LITERS O2 VIA NC. SNORING NOTED. HEART RATE REGULAR IN THE 60'S. BP STABLE. SCD'S ON. NO EDEMA. BT+ ABD SOFT AND NONTENDER. BILAT SOFT WRIST RESTRAINTS ON. SKIN INTACT. POWER GLIDE TO LEFT UPPER ARM, SITE CLEAR AND DRSG INTACT. LR AT 200 ML/HR AND PRECEDEX AT 0.2 MCQ/KG/MIN. IV LEFT WRIST SALINE LOCKED, SITE CLEAR, FLUSHED WITHOUT DIFFICULTY. ATTENDS ON, CD&I.
--- NOTE | 2021-01-15 00:15 | NUR ---
REASSESSMENT PT AWAKENS TO VERBAL STIMULI. ANSWERING QUESTIONS APPROP. SPEECH STILL A LITTLE SLURRED. A&O X4. CIWA 6. BILAT WRIST RESTRAINTS ON. ATTENDS CD&I. PT DENIES NEED FOR URINAL. ASSISTED WITH DRINKING APPLE JUICE, NO DIFFICULTY SWALLOWING NOTED. PT STATES,"I'M FEELING GREAT". PT REPOSITIONED. REFUSED SOMETHING TO EAT. VSS
--- NOTE | 2021-01-15 00:23 | NUR ---
HS MED PT AWAKE AND ABLE TO TAKE PO MED. 2100 NEUROTIN GIVEN.
[2021-01-15 03:49] LABS: BASOPHILS ABSOLUTE AUTO 0.04 K/mm3 (0.00-0.23); BASOPHILS PERCENT AUTO 1 % (0-2); EOSINOPHILS ABSOLUTE AUTO 0.17 K/mm3 (0.00-0.68); EOSINOPHILS PERCENT AUTO 2 % (0-6); Hematocrit 41.2 % (37.0-53.0); Hemoglobin 13.8 g/dL (13.5-17.5); IMMATURE GRAN ABSOLUTE AUTO 0.04 K/mm3 (0.00-0.10); IMMATURE GRAN PERCENT AUTO 1 % (0-1); LYMPHOCYTES ABSOLUTE AUTO 0.96 K/mm3 (0.84-5.20); LYMPHOCYTES PERCENT AUTO 12 % (21-46); MONOCYTES ABSOLUTE AUTO 0.66 K/mm3 (0.16-1.47); MONOCYTES PERCENT AUTO 8 % (4-13); Mean Corpuscular HGB 35.5 pg (26.0-34.0); Mean Corpuscular HGB Conc 33.5 g/dL (31.5-36.5); Mean Corpuscular Volume 106 fL (80-100); Mean Platelet Volume 9.7 fL (9.1-12.4); NEUTROPHILS ABSOLUTE AUTO 6.14 K/mm3 (1.96-9.15); NEUTROPHILS PERCENT AUTO 77 % (41-73); Platelet Count 176 K/mm3 (150-400); RDW Coefficient Variation 12.6 % (11.7-14.2); RDW Standard Deviation 49.1 fL (35.1-46.3); Red Blood Cell Count 3.89 M/mm3 (4.30-5.90); White Blood Cell Count 8.01 K/mm3 (4.00-11.30)
[2021-01-15 04:07] LABS: Alanine Aminotransfer (ALT/SGP 187 U/L (12-78); Albumin, Blood 3.1 g/dL (3.4-5.0); Alk Phos 82 U/L (50-136); Anion Gap 5 mmol/L (6-16); Aspartate Aminotrans (AST/SGOT 157 U/L (12-37); Bilirubin, Total 0.7 mg/dL (0.1-1.0); Blood Urea Nitrogen 15 mg/dL (8-24); Bun/Creatinine Ratio 20.6 (12.0-20.0); CO2, Blood 27 mmol/L (21-32); Calcium, Blood 8.3 mg/dL (8.5-10.1); Chloride, Blood 107 mmol/L (98-108); Creatinine, Blood 0.73 mg/dL (0.60-1.20); Globulin, Blood 3.2 g/dL (2.2-4.0); Glomerular Filtration Rate >60 (60-); Glucose, Blood 83 mg/dL (70-99); Potassium, Blood 4.1 mmol/L (3.5-5.5); Sodium, Blood 139 mmol/L (136-145); Total Protein, Blood 6.3 g/dL (6.4-8.2)
--- NOTE | 2021-01-15 04:57 | NUR ---
BLADDER SCAN PT UNABLE TO VOID. BLADDER SCAN DONE, 810 ML URINE NOTED. CALL TO DR BRENNAN. FUENTES CATH PLACED 14 FR. UA SENT. YELLOW URINE DRAINING.
[2021-01-15 05:22] LABS: Source, Urine Catheter
[2021-01-15 05:54] LABS: Appearance, Urine Clear (Clear); Bilirubin, Urine Neg (Neg); Blood, Urine Neg (Neg); Color, Urine Yellow (P-Yellow); Glucose Qualitative, Urine Neg (Neg); Ketones, Urine Neg (Neg); Leukocyte Esterase, Urine Neg (Neg); Nitrite, Urine Neg (Neg); Protein, Urine 1+ (Neg); Urobilinogen, Urine NORM (Normal); pH, Urine 6.5 (5.0-8.0)
--- NOTE | 2021-01-15 06:08 | NUR ---
SHIFT SUMMARY PT SLEEPING. AWAKENS TO VERBAL STIMULI. CIWA 6-12 DURING THE NIGHT. PRECEDEX AT 0.2 MCQ/KG/MIN. BILAT SOFT WRIST RESTRAINTS ON. PT UNABLE TO VOID. BLADDER SCAN DONE AND FUENTES CATH PLACED. UA SENT. PT MOVING SELF AROUND IN BED. VSS. REPORT TO ON COMING NURSE
--- NOTE | 2021-01-15 07:00 | NUR ---
ASSUME CARE: I have assumed care of pt. At this time he is resting in bed with restraints on and precedex a 0.2 mcg/kg/min.
--- NOTE | 2021-01-15 13:16 | NUR ---
UPDATE: Hospitalist called and updated on pt status. Precedex off since 0900. Verbal order given to transfer pt to medical floor, no tele.
--- NOTE | 2021-01-15 17:27 | NUR ---
END OF SHIFT SUMMARY: Precedex discontinued today at 0900 and librium started. Pt required a total of 200mg of librium today bringing his CIWA from 18 this morning to a 7 by the end of shift. Status change to medical no tele. BM this morning. At this time pt is sitting up in the chair which he ambulated to with minimal assistance, and is eating dinner independantly. Speech is still slightly slurred, but pt is oriented x 4 if given adequite time to process his thoughts. Posy vest discontinued. Bed alarm in use and tap alarm while in chair.
--- NOTE | 2021-01-15 18:26 | NUR ---
FAMILY: This RN spoke to pt's sister Alethea at [phone] and updated her on pt's status. She asks that pt called her when he is awake and add other siblings to contact list.
--- NOTE | 2021-01-15 20:00 | NUR ---
Assumed care after report recieved. assessment completed. Alert and oriented, sometimes slow to answer. lungs coarse bilat with room air sats at 87%, O2 reapplied at 2L NC. recovered quickly to 96%. Denies any needs or complaints at this time.
--- NOTE | 2021-01-16 01:02 | NUR ---
report given to surgical floor, transfered to room 231 via wheelchair with O2. Alert and oriented, denies any complaints.
--- NOTE | 2021-01-16 01:20 | NUR ---
Pt arrived from ICU at around 0100 by wheelchair. He is AAOx4, denies pain. He is assited with going to bed, no distress. He is assited with other care, encouraged to call for help as he needs. Call light provided.
[2021-01-16 06:53] LABS: Albumin, Blood 3.3 g/dL (3.4-5.0); Albumin/Globulin Ratio 0.9 (0.8-1.8); Bilirubin, Direct 0.2 mg/dL (0.0-0.3); Bilirubin, Indirect 0.3 mg/dL (0.1-0.7); Bilirubin, Total 0.5 mg/dL (0.1-1.0); Globulin, Blood 3.6 g/dL (2.2-4.0); Total Protein, Blood 6.9 g/dL (6.4-8.2)
[2021-01-16] MEDS ORDERED: GABA300 PO (11:40)
[2021-01-16] MEDS ORDERED: NIFE30ER PO (11:40)
[2021-01-16] MEDS ORDERED: FOLI1 PO (11:41)
[2021-01-16] MEDS ORDERED: B-1100 M1 PO (11:42)
--- NOTE | 2021-01-16 12:35 | NUR ---
DISCHARGED FAXED PRESCRIPTIONS TO [facility] PER PT REQUEST. IV ACCESS DC'D WNL. REVIEWED DC ORDERS W/PT; VERBALIZED UNDERSTANDING. PT LEFT UNIT IN WC TO RIDE WAITING OUTSIDE.
== END 2021-01-16 11:52 | disposition home or self-care (01) | DRG 915 ==
LOC: ER 02:36 → PCU 02:37 → ERHOLD 02:37 → PCU 08:03 → ICUE 01-14 15:33 → SURS 01-16 00:53
PROVIDERS: Family Medicine; Student in an Organized Health Care Education/Training Program; ADMIT Internal Medicine
DX: T78.3XXA Angioneurotic edema, initial encounter (principal); J96.01 Acute respiratory failure with hypoxia; F10.231 Alcohol dependence with withdrawal delirium; D72.829 Elevated white blood cell count, unspecified; T46.4X1A Poisoning by angiotensin-converting-enzyme inhibitors, accidental (unintentional), initial encounter; I10 Essential (primary) hypertension; Z90.49 Acquired absence of other specified parts of digestive tract; Z23 Encounter for immunization; Z98.890 Other specified postprocedural states; Z88.8 Allergy status to other drugs, medicaments and biological substances; Z79.899 Other long term (current) drug therapy
CPT/HCPCS: 36415; 51702; 80048; 80053; 80076; 84484; 85025; 90686; 93005; 93010; 94760; 94762; 96372; 96374; 96375; 96376; 99284-25; A9270; C1751; G0378; J0171; J0360; J1200; J2060; J2270; J2560; J2930; J3411; J7050; J7120

== ENCOUNTER 2021-08-26 15:27 | Observation (INO) | payer OTHER ==
[~2021-08-26] VITALS: Ht 175.3 cm; Wt 79.4 kg
[~2021-08-26 15:27] MED LIST changes: +B-1100 M1 PO; +FOLI1 PO
[2021-08-26 15:49] LABS: BASOPHILS ABSOLUTE AUTO 0.06 K/mm3 (0.00-0.23); BASOPHILS PERCENT AUTO 1 % (0-2); EOSINOPHILS ABSOLUTE AUTO 0.05 K/mm3 (0.00-0.68); EOSINOPHILS PERCENT AUTO 1 % (0-6); Hematocrit 47.3 % (37.0-53.0); Hemoglobin 16.8 g/dL (13.5-17.5); IMMATURE GRAN ABSOLUTE AUTO 0.02 K/mm3 (0.00-0.10); IMMATURE GRAN PERCENT AUTO 0 % (0-1); LYMPHOCYTES ABSOLUTE AUTO 1.32 K/mm3 (0.84-5.20); LYMPHOCYTES PERCENT AUTO 16 % (21-46); MONOCYTES ABSOLUTE AUTO 1.14 K/mm3 (0.16-1.47); MONOCYTES PERCENT AUTO 13 % (4-13); Mean Corpuscular HGB 35.8 pg (26.0-34.0); Mean Corpuscular HGB Conc 35.5 g/dL (31.5-36.5); Mean Corpuscular Volume 101 fL (80-100); Mean Platelet Volume 9.8 fL (9.1-12.4); NEUTROPHILS ABSOLUTE AUTO 5.93 K/mm3 (1.96-9.15); NEUTROPHILS PERCENT AUTO 70 % (41-73); Platelet Count 205 K/mm3 (150-400); RDW Coefficient Variation 12.7 % (11.7-14.2); RDW Standard Deviation 47.4 fL (35.1-46.3); Red Blood Cell Count 4.69 M/mm3 (4.30-5.90); White Blood Cell Count 8.52 K/mm3 (4.00-11.30)
[2021-08-26 16:06] LABS: Albumin, Blood 4.6 g/dL (3.4-5.0); Albumin/Globulin Ratio 1.1 (0.8-1.8); Bilirubin, Total 1.4 mg/dL (0.1-1.0); Bun/Creatinine Ratio 13.3 (12.0-20.0); Creatinine, Blood 1.2 mg/dL (0.60-1.20); Globulin, Blood 4.3 g/dL (2.2-4.0); Potassium, Blood 3.5 mmol/L (3.5-5.5); Total Protein, Blood 8.9 g/dL (6.4-8.2)
[2021-08-26 16:24] LABS: Free Thyroxine 0.82 ng/dL (0.70-1.60)
[2021-08-26 16:25] LABS: Thyroid Stimulating Hormone 2.3 uIU/mL (0.360-4.800)
[2021-08-26 18:29] LABS: U Amphetamine Screen Not Detected; U Barbituate Screen Not Detected; U Benzodiazapine Screen Not Detected; U Buprenorphine Screen Not Detected; U Cannabinoids Screen DETECTED; U Cocaine Screen Not Detected; U Methadone Screen Not Detected; U Methamphetamine Screen Not Detected; U Opiates Screen Not Detected; U Oxycodone Screen Not Detected; U Phencyclidine Screen Not Detected; U Propoxyphene Screen Not Detected
[2021-08-26 18:40] LABS: Creatine Kinase MB Index 1.3 (0.0-4.0)
[2021-08-26] MEDS ORDERED: ATOR40TA PO (21:48)
[2021-08-27 05:55] LABS: BASOPHILS ABSOLUTE AUTO 0.06 K/mm3 (0.00-0.23); BASOPHILS PERCENT AUTO 1 % (0-2); EOSINOPHILS PERCENT AUTO 3 % (0-6); Hematocrit 42.7 % (37.0-53.0); Hemoglobin 14.8 g/dL (13.5-17.5); IMMATURE GRAN ABSOLUTE AUTO 0.03 K/mm3 (0.00-0.10); IMMATURE GRAN PERCENT AUTO 0 % (0-1); LYMPHOCYTES ABSOLUTE AUTO 1.52 K/mm3 (0.84-5.20); LYMPHOCYTES PERCENT AUTO 21 % (21-46); MONOCYTES ABSOLUTE AUTO 0.95 K/mm3 (0.16-1.47); MONOCYTES PERCENT AUTO 13 % (4-13); Mean Corpuscular HGB 35.9 pg (26.0-34.0); Mean Corpuscular HGB Conc 34.7 g/dL (31.5-36.5); Mean Corpuscular Volume 104 fL (80-100); Mean Platelet Volume 9.8 fL (9.1-12.4); NEUTROPHILS ABSOLUTE AUTO 4.41 K/mm3 (1.96-9.15); NEUTROPHILS PERCENT AUTO 62 % (41-73); Platelet Count 169 K/mm3 (150-400); RDW Coefficient Variation 13.2 % (11.7-14.2); RDW Standard Deviation 50.5 fL (35.1-46.3); Red Blood Cell Count 4.12 M/mm3 (4.30-5.90); White Blood Cell Count 7.17 K/mm3 (4.00-11.30)
[2021-08-27 06:40] LABS: Albumin, Blood 3.5 g/dL (3.4-5.0); Albumin/Globulin Ratio 1.1 (0.8-1.8); Bilirubin, Total 1.3 mg/dL (0.1-1.0); Bun/Creatinine Ratio 22.2 (12.0-20.0); Calcium, Blood 8.3 mg/dL (8.5-10.1); Creatinine, Blood 0.77 mg/dL (0.60-1.20); Globulin, Blood 3.2 g/dL (2.2-4.0); Potassium, Blood 3.7 mmol/L (3.5-5.5)
[2021-08-27 06:49] LABS: Total Protein, Blood 6.7 g/dL (6.4-8.2)
[2021-08-27 07:06] LABS: Creatine Kinase MB 14.1 ng/mL (0.0-3.6); Creatine Kinase MB Index 1.1 (0.0-4.0)
[2021-10-20] MEDS ORDERED: FOLI1 PO (05:53)
[2021-10-20] MEDS ORDERED: VISBIOME 112.51 EACH PO (08:59)
[2021-10-20] MEDS ORDERED: AMOCLA875 PO (09:00)
[2021-10-20] MEDS ORDERED: AZIT250 PO (09:01)
== END 2021-08-27 14:11 | disposition home or self-care (01) ==
LOC: ER 15:27 → MEDS 15:28
PROVIDERS: Physician Assistant; Student in an Organized Health Care Education/Training Program; ADMIT Family Medicine
DX: R55 Syncope and collapse (principal); M62.82 Rhabdomyolysis; I48.92 Unspecified atrial flutter; F10.20 Alcohol dependence, uncomplicated; E87.1 Hypo-osmolality and hyponatremia; R94.31 Abnormal electrocardiogram [ECG] [EKG]; I10 Essential (primary) hypertension; F17.210 Nicotine dependence, cigarettes, uncomplicated; Z86.711 Personal history of pulmonary embolism; Z88.8 Allergy status to other drugs, medicaments and biological substances; Z79.899 Other long term (current) drug therapy
CPT/HCPCS: 36415; 80053; 82550; 82553; 84146; 84439; 84443; 84481; 85025; 85379; 93005; 93010; 93306; 96361; 96365; 96372; 96374; 97165; 99285-25; A9270; G0378; J1650; J3411; J7030

== ENCOUNTER 2021-09-05 14:16 | Emergency (ER) | payer OTHER ==
[~2021-09-05] VITALS: Ht 175.3 cm; Wt 74.8 kg
[~2021-09-05 14:16] MED LIST changes: +ATOR40TA PO
== END 2021-09-05 17:15 | disposition home or self-care (01) ==
LOC: ER 14:16
DX: R04.0 Epistaxis (principal); F17.200 Nicotine dependence, unspecified, uncomplicated; Z88.8 Allergy status to other drugs, medicaments and biological substances; Z79.899 Other long term (current) drug therapy
CPT/HCPCS: A9270

== ENCOUNTER 2021-09-05 21:35 | Emergency (ER) | payer OTHER ==
[~2021-09-05] VITALS: Ht 177.8 cm; Wt 72.6 kg
== END 2021-09-05 23:09 | disposition left against medical advice (07) ==
LOC: ER 21:35
DX: R04.0 Epistaxis (principal); Z53.29 Procedure and treatment not carried out because of patient's decision for other reasons; F17.200 Nicotine dependence, unspecified, uncomplicated; Z79.899 Other long term (current) drug therapy; Z88.8 Allergy status to other drugs, medicaments and biological substances
CPT/HCPCS: 99282; A9270